=== PATIENT | male | born 1960 | race Caucasian/White ===

== ENCOUNTER → 2017-03-12 | Outpatient (REF) | payer BC ==
[2017-03-12 13:50] LABS: ALBUMIN 3.5 GM/DL (3.2-5.2); ALBUMIN/GLOBULIN RATIO 1.21 (1.00-1.93); ALKALINE PHOSPHATASE 99 U/L (45-117); ALT/SGPT 64 U/L (12-78); ANION GAP 7 MEQ/L (8-16); AST/SGOT 49 U/L (15-37); BLOOD UREA NITROGEN 22 MG/DL (7-18); CALCIUM LEVEL 8.7 MG/DL (8.5-10.1); CARBON DIOXIDE LEVEL 28 MEQ/L (21-32); CHLORIDE LEVEL 107 MEQ/L (98-107); CREATININE FOR GFR 0.91 MG/DL (0.70-1.30); GLOMERULAR FILTRATION RATE > 60.0 (>56); GLUCOSE, FASTING 117 MG/DL (70-105); POTASSIUM SERUM 4.2 MEQ/L (3.5-5.1); SODIUM LEVEL 142 MEQ/L (136-145); TOTAL PROTEIN 6.4 GM/DL (6.4-8.2)
== END ==
LOC: M LABDRAWP 11:57
PROVIDERS: ATTEND Internal Medicine
DX: R73.01 Impaired fasting glucose (principal); N42.0 Calculus of prostate
CPT/HCPCS: 36415; 80053; 83036; G0103

== ENCOUNTER → 2018-03-12 | Outpatient (REF) | payer BC ==
[2018-03-12 10:33] LABS: ANION GAP 7 MEQ/L (8-16); BLOOD UREA NITROGEN 15 MG/DL (7-18); CALCIUM LEVEL 8.4 MG/DL (8.5-10.1); CARBON DIOXIDE LEVEL 29 MEQ/L (21-32); CHLORIDE LEVEL 105 MEQ/L (98-107); CREATININE FOR GFR 0.95 MG/DL (0.70-1.30); GLOMERULAR FILTRATION RATE > 60.0 (>56); GLUCOSE, FASTING 117 MG/DL (70-100); POTASSIUM SERUM 4.3 MEQ/L (3.5-5.1); SODIUM LEVEL 141 MEQ/L (136-145)
[2018-03-12 10:34] LABS: ALBUMIN 3.7 GM/DL (3.2-5.2); ALBUMIN/GLOBULIN RATIO 1.12 (1.00-1.93); ALKALINE PHOSPHATASE 99 U/L (45-117); ALT/SGPT 50 U/L (12-78); AST/SGOT 33 U/L (7-37); BILIRUBIN,TOTAL 1.2 MG/DL (0.2-1.0); CHOLESTEROL LEVEL 151 MG/DL (<200); CHOLESTEROL RISK RATIO 2.849 (<5); HDL CHOLESTEROL 53 MG/DL (>40); LDL CHOLESTEROL 81.8 MG/DL (<100); NON-HDL-C 98 MG/DL; TRIGLYCERIDES LEVEL 81 MG/DL (<150)
[2018-03-12 10:41] LABS: ESTIMATED AVERAGE GLUCOSE 123 MG/DL (60-110); HEMOGLOBIN A1c 5.9 %
== END ==
LOC: M SFHCPLAZ 08:03
DX: R73.01 Impaired fasting glucose (principal)
CPT/HCPCS: 80053

== ENCOUNTER → 2019-03-16 | Outpatient (REF) | payer BC ==
[2019-03-16 11:10] LABS: HEMATOCRIT 47.4 % (42.0-52.0); HEMOGLOBIN 16.5 g/dl (13.5-17.5); MEAN CORPUSCULAR HEMOGLOBIN 32.9 pg (27.0-33.0); MEAN CORPUSCULAR HGB CONC 34.8 g/dl (32.0-36.5); MEAN CORPUSCULAR VOLUME 94.4 fl (80.0-96.0); PLATELET COUNT, AUTOMATED 187 10^3/uL (150-450); RED BLOOD COUNT 5.02 10^6/uL (4.30-6.10); WHITE BLOOD COUNT 4.5 10^3/uL (4.0-10.0)
[2019-03-16 11:46] LABS: ALBUMIN 3.8 GM/DL (3.2-5.2); ALT/SGPT 44 U/L (12-78); BILIRUBIN,TOTAL 1.6 MG/DL (0.2-1.0); BLOOD UREA NITROGEN 17 MG/DL (7-18); CALCIUM LEVEL 9.3 MG/DL (8.8-10.2); CARBON DIOXIDE LEVEL 30 MEQ/L (21-32); CHLORIDE LEVEL 103 MEQ/L (98-107); GLOMERULAR FILTRATION RATE > 60.0 (>49); GLUCOSE, FASTING 127 MG/DL (70-100); POTASSIUM SERUM 5.1 MEQ/L (3.5-5.1); SODIUM LEVEL 139 MEQ/L (136-145)
[2019-03-16 11:54] LABS: HEMOGLOBIN A1c 6.7 %
== END ==
LOC: M SFHCPLAZ 08:31
PROVIDERS: ATTEND Internal Medicine
DX: Z00.00 Encounter for general adult medical examination without abnormal findings (principal); R73.01 Impaired fasting glucose; N42.0 Calculus of prostate
CPT/HCPCS: 36415; 80053; 83036; 85027; G0103

== ENCOUNTER 2019-05-19 08:07 | Day surgery (SDC) | payer BC ==
[~2019-05-19] VITALS: Ht 182.9 cm; Wt 98.9 kg
[~2019-05-19 08:07] MED LIST: LIDOCAINE 2% INJ 100 MG/5 ML SDV (FOR ANES.) As Ordered ONE; NS 1,000 ML IV ONE
[2019-05-19] MEDS ORDERED: PROPOFOL 200 MG/20 ML VIAL As Ordered ONE ×2 (09:07→10:03)
--- NOTE | 2019-05-19 10:08 | ROOR ---
Patient Name: Hamilton Babb Procedure Date: 05/19/2019 9:28 AM Date of : 1960 Age: 59 Room: [facility] Gender: Male Note Status: Finalized Procedure: Colonoscopy Indications: Screening for colorectal malignant neoplasm, Last colonoscopy: September 2009 Providers: Onesimo Kay MD Referring MD: Rip Cotton MD Requesting Provider: Medicines: Monitored Anesthesia Care Complications: No immediate complications. Procedure: Pre-Anesthesia Assessment: - Prior to the procedure, a History and Physical was performed, and patient medications and allergies were reviewed. The patient is competent. The risks and benefits of the procedure and the sedation options and risks were discussed with the patient. All questions were answered and informed consent was obtained. Patient identification and proposed procedure were verified by the physician, the nurse and the anesthesiologist in the procedure room. Mental Status Examination: alert and oriented. Airway Examination: normal oropharyngeal airway and neck mobility. CV Examination: regular rate and rhythm. Prophylactic Antibiotics: The patient does not require prophylactic antibiotics. Prior Anticoagulants: The patient has taken no previous anticoagulant or antiplatelet agents. ASA Grade Assessment: I - A normal, healthy patient. After reviewing the risks and benefits, the patient was deemed in satisfactory condition to undergo the procedure. The anesthesia plan was to use monitored anesthesia care (MAC). Immediately prior to administration of medications, the patient was re-assessed for adequacy to receive sedatives. The heart rate, respiratory rate, oxygen saturations, blood pressure, adequacy of pulmonary ventilation, and response to care were monitored throughout the procedure. The physical status of the patient was re-assessed after the procedure. The Colonoscope was introduced through the anus and advanced to the cecum, identified by appendiceal orifice and ileocecal valve. The colonoscopy was performed without difficulty. The patient tolerated the procedure well. The quality of the bowel preparation was excellent. Findings: The perianal and digital rectal examinations were normal. A 4 mm polyp was found in the proximal ascending colon. The polyp was sessile. The polyp was removed with a cold snare. Resection and retrieval were complete. Estimated blood loss was minimal. A few medium-mouthed diverticula were found in the entire colon. Impression: - One 4 mm polyp in the proximal ascending colon, removed with a cold snare. Resected and retrieved. - Diverticulosis in the entire examined colon. Recommendation: - Discharge patient to home. - Resume previous diet. - Continue present medications. - Await pathology results. - If the pathology report reveals adenomatous tissue, then repeat the colonoscopy for surveillance in 3 - 5 years. Onesimo Kay MD Onesimo Kay MD 05/19/2019 10:08:25 AM Electronically signed by Onesimo Kay MD Number of Addenda: 0 Note Initiated On: 05/19/2019 9:28 AM Estimated Blood Loss: Estimated blood loss was minimal.
[2019-05-19 10:37] VITALS: BP 138/86
== END 2019-05-19 10:38 | disposition home or self-care (01) ==
LOC: M OPP 08:07
PROVIDERS: ATTEND Surgery
DX: Z12.11 Encounter for screening for malignant neoplasm of colon (principal); D12.2 Benign neoplasm of ascending colon; K57.30 Diverticulosis of large intestine without perforation or abscess without bleeding; Z87.891 Personal history of nicotine dependence

== ENCOUNTER → 2019-06-13 | Outpatient (REF) | payer BC | LOC: M LAB REF 08:23 | PROVIDERS: ATTEND Physician Assistant | DX: J06.9 Acute upper respiratory infection, unspecified (principal) ==

== ENCOUNTER → 2019-09-14 | Outpatient (REF) | payer BC ==
[2019-09-14 12:23] LABS: HEMOGLOBIN A1c 6.2 %
[2019-09-14 12:36] LABS: ALBUMIN 3.5 GM/DL (3.2-5.2); ALT/SGPT 48 U/L (12-78); BILIRUBIN,TOTAL 1.2 MG/DL (0.2-1.0); BLOOD UREA NITROGEN 14 MG/DL (7-18); CALCIUM LEVEL 8.7 MG/DL (8.8-10.2); CARBON DIOXIDE LEVEL 30 MEQ/L (21-32); CHLORIDE LEVEL 104 MEQ/L (98-107); CHOLESTEROL LEVEL 154 MG/DL (<200); CHOLESTEROL RISK RATIO 3.347 (<5); CREATININE FOR GFR 0.98 MG/DL (0.70-1.30); GLOMERULAR FILTRATION RATE > 60.0 (>49); GLUCOSE, FASTING 127 MG/DL (70-100); HDL CHOLESTEROL 46 MG/DL (>40); LDL CHOLESTEROL 90 MG/DL (<100); NON-HDL-C 108 MG/DL; POTASSIUM SERUM 4.3 MEQ/L (3.5-5.1); SODIUM LEVEL 140 MEQ/L (136-145); TOTAL PROTEIN 6.8 GM/DL (6.4-8.2); TRIGLYCERIDES LEVEL 88 MG/DL (<150)
[2019-09-14 14:03] LABS: MAU/CREAT RATIO 4.5 MCG/MG (0.0-30.0)
== END ==
LOC: M SFHCPLAZ 08:17
PROVIDERS: ATTEND Internal Medicine
DX: R73.01 Impaired fasting glucose (principal)

== ENCOUNTER → 2020-05-21 | Outpatient (REF) | payer BC ==
[2020-06-17 20:25] LABS: HEMATOCRIT 46.8 % (42.0-52.0); HEMOGLOBIN 15.8 g/dl (13.5-17.5); MEAN CORPUSCULAR HEMOGLOBIN 33.1 pg (27.0-33.0); MEAN CORPUSCULAR HGB CONC 33.8 g/dl (32.0-36.5); MEAN CORPUSCULAR VOLUME 97.9 fl (80.0-96.0); PLATELET COUNT, AUTOMATED 153 10^3/uL (150-450); RED BLOOD COUNT 4.78 10^6/uL (4.30-6.10); WHITE BLOOD COUNT 3.9 10^3/uL (4.0-10.0)
[2020-07-02 12:00] LABS: ALBUMIN 3.8 GM/DL (3.2-5.2); ALT/SGPT 57 U/L (12-78); BILIRUBIN,TOTAL 0.8 MG/DL (0.2-1.0); BLOOD UREA NITROGEN 12 MG/DL (7-18); CALCIUM LEVEL 8.9 MG/DL (8.8-10.2); CARBON DIOXIDE LEVEL 27 MEQ/L (21-32); CHLORIDE LEVEL 107 MEQ/L (98-107); CREATININE FOR GFR 0.96 MG/DL (0.70-1.30); GLOMERULAR FILTRATION RATE > 60.0 (>49); GLUCOSE, FASTING 156 MG/DL (70-100); HEMOGLOBIN A1c 6.5 %; POTASSIUM SERUM 4.3 MEQ/L (3.5-5.1); SODIUM LEVEL 139 MEQ/L (136-145); TOTAL PROTEIN 7.1 GM/DL (6.4-8.2)
== END ==
LOC: M SFHCPLAZ 12:42
PROVIDERS: ATTEND Internal Medicine
DX: Z00.00 Encounter for general adult medical examination without abnormal findings (principal); R73.01 Impaired fasting glucose; N42.0 Calculus of prostate
CPT/HCPCS: 36415; 80053; 83036; 85027; G0103

== ENCOUNTER → 2020-10-05 | Outpatient (CLI) | payer SELFPAY | LOC: M LABSMTC 14:02 | PROVIDERS: ATTEND Pediatrics | DX: Z20.828 Contact with and (suspected) exposure to other viral communicable diseases (principal) ==

== ENCOUNTER → 2020-11-27 | Outpatient (CLI) | payer SELFPAY | LOC: M LABSMTC 09:42 | PROVIDERS: ATTEND Pediatrics | DX: Z20.822 Contact with and (suspected) exposure to COVID-19 (principal) ==

== ENCOUNTER → 2020-12-10 | Outpatient (CLI) | payer SELFPAY | LOC: M LABSMTC 13:59 | PROVIDERS: ATTEND Pediatrics | DX: Z20.822 Contact with and (suspected) exposure to COVID-19 (principal) ==

== ENCOUNTER → 2021-04-02 | Outpatient (REF) | payer BC ==
[2021-04-02 11:49] LABS: BASO % 1.1 % (0.0-1.0); EOS # 0.1 10^3/uL (0.0-0.5); EOS % 1.9 % (0.0-3.0); HEMATOCRIT 47.3 % (42.0-52.0); HEMOGLOBIN 16.1 g/dl (13.5-17.5); LYMPH % 25.4 % (24.0-44.0); MEAN CORPUSCULAR HEMOGLOBIN 32.7 pg (27.0-33.0); MEAN CORPUSCULAR VOLUME 96.1 fl (80.0-96.0); MONO # 0.4 10^3/uL (0.0-0.8); MONO % 9.4 % (2.0-8.0); NEUTROPHILS # 2.3 10^3/uL (1.5-8.5); NEUTROPHILS % 61.9 % (36.0-66.0); PLATELET COUNT, AUTOMATED 148 10^3/uL (150-450); RED BLOOD COUNT 4.92 10^6/uL (4.30-6.10); WHITE BLOOD COUNT 3.7 10^3/uL (4.0-10.0)
[2021-04-02 12:34] LABS: ALBUMIN 3.5 GM/DL (3.2-5.2); ALT/SGPT 49 U/L (12-78); BILIRUBIN,TOTAL 1.3 MG/DL (0.2-1.0); BLOOD UREA NITROGEN 17 MG/DL (7-18); CALCIUM LEVEL 8.5 MG/DL (8.8-10.2); CARBON DIOXIDE LEVEL 28 MEQ/L (21-32); CHLORIDE LEVEL 104 MEQ/L (98-107); CHOLESTEROL LEVEL 149 MG/DL (<200); CHOLESTEROL RISK RATIO 3.311 (<5); CREATININE FOR GFR 0.88 MG/DL (0.70-1.30); GLOMERULAR FILTRATION RATE > 60.0 (>49); GLUCOSE, FASTING 255 MG/DL (70-100); HDL CHOLESTEROL 45 MG/DL (>40); LDL CHOLESTEROL 86 MG/DL (<100); NON-HDL-C 104 MG/DL; POTASSIUM SERUM 4.3 MEQ/L (3.5-5.1); SODIUM LEVEL 136 MEQ/L (136-145); TOTAL PROTEIN 6.7 GM/DL (6.4-8.2); TRIGLYCERIDES LEVEL 88 MG/DL (<150)
[2021-04-02 13:09] LABS: HEPATITIS C VIRUS ABY INDEX < 0.0 INDEX (<0.8)
[2021-04-02 15:50] LABS: HEMOGLOBIN A1c 10.1 %
[2021-04-03 11:44] LABS: CREATININE, URINE 61.4 MG/DL; MALB URINE SIEMENS < 5.0 MG/L; MAU/CREAT RATIO 8.1 MCG/MG (0.0-30.0)
== END ==
LOC: M SFHCPLAZ 08:27
PROVIDERS: ATTEND Internal Medicine
DX: Z00.00 Encounter for general adult medical examination without abnormal findings (principal); R73.01 Impaired fasting glucose; Z12.5 Encounter for screening for malignant neoplasm of prostate; Z11.59 Encounter for screening for other viral diseases

== ENCOUNTER → 2021-07-04 | Outpatient (CLI) | payer BC ==
[2021-07-04 11:21] LABS: ALBUMIN 3.5 GM/DL (3.2-5.2); ALT/SGPT 42 U/L (12-78); BILIRUBIN,TOTAL 0.8 MG/DL (0.2-1.0); BLOOD UREA NITROGEN 17 MG/DL (7-18); CALCIUM LEVEL 8.9 MG/DL (8.8-10.2); CARBON DIOXIDE LEVEL 27 MEQ/L (21-32); CHLORIDE LEVEL 104 MEQ/L (98-107); CREATININE FOR GFR 0.91 MG/DL (0.70-1.30); GLOMERULAR FILTRATION RATE > 60.0 (>49); GLUCOSE, FASTING 137 MG/DL (70-100); POTASSIUM SERUM 4.6 MEQ/L (3.5-5.1); SODIUM LEVEL 140 MEQ/L (136-145); TOTAL PROTEIN 6.7 GM/DL (6.4-8.2)
[2021-07-04 11:29] LABS: HEMOGLOBIN A1c 6.2 %
== END ==
LOC: M PLALAB 08:21
PROVIDERS: ATTEND Internal Medicine
DX: E11.9 Type 2 diabetes mellitus without complications (principal)

== ENCOUNTER → 2022-01-13 | Outpatient (CLI) | payer BC ==
[2022-01-13 13:42] LABS: BASO % 0.8 % (0.0-1.0); EOS # 0.1 10^3/uL (0.0-0.5); EOS % 1.6 % (0.0-3.0); HEMATOCRIT 47.1 % (42.0-52.0); HEMOGLOBIN 16.6 g/dl (13.5-17.5); LYMPH % 25.3 % (24.0-44.0); MEAN CORPUSCULAR HEMOGLOBIN 33.1 pg (27.0-33.0); MEAN CORPUSCULAR HGB CONC 35.2 g/dl (32.0-36.5); MONO # 0.3 10^3/uL (0.0-0.8); MONO % 8.3 % (2.0-8.0); NEUTROPHILS # 2.5 10^3/uL (1.5-8.5); NEUTROPHILS % 63.7 % (36.0-66.0); PLATELET COUNT, AUTOMATED 151 10^3/uL (150-450); RED BLOOD COUNT 5.01 10^6/uL (4.30-6.10); WHITE BLOOD COUNT 3.9 10^3/uL (4.0-10.0)
[2022-01-13 14:13] LABS: ALBUMIN 3.8 GM/DL (3.2-5.2); ALT/SGPT 49 U/L (12-78); BLOOD UREA NITROGEN 16 MG/DL (7-18); CALCIUM LEVEL 9.3 MG/DL (8.8-10.2); CARBON DIOXIDE LEVEL 31 MEQ/L (21-32); CHLORIDE LEVEL 107 MEQ/L (98-107); CHOLESTEROL LEVEL 144 MG/DL (<200); CHOLESTEROL RISK RATIO 2.769 (<5); CREATININE FOR GFR 0.97 MG/DL (0.70-1.30); GLOMERULAR FILTRATION RATE > 60.0 (>49); GLUCOSE, FASTING 137 MG/DL (70-100); HDL CHOLESTEROL 52 MG/DL (>40); LDL CHOLESTEROL 75 MG/DL (<100); NON-HDL-C 92 MG/DL; POTASSIUM SERUM 4.9 MEQ/L (3.5-5.1); SODIUM LEVEL 140 MEQ/L (136-145); TOTAL PROTEIN 6.9 GM/DL (6.4-8.2); TRIGLYCERIDES LEVEL 86 MG/DL (<150)
[2022-01-13 15:48] LABS: MALB URINE SIEMENS < 5.0 MG/L; MAU/CREAT RATIO 5.4 MCG/MG (0.0-30.0)
[2022-01-15 10:18] LABS: HEMOGLOBIN A1c 6.7 %
== END ==
LOC: M PLALAB 09:17
PROVIDERS: ATTEND Internal Medicine
DX: E11.9 Type 2 diabetes mellitus without complications (principal); Z86.010 Personal history of colon polyps

== ENCOUNTER → 2022-06-05 | Outpatient (CLI) | payer BC ==
[~2022-06-05] MED LIST changes: -LIDOCAINE 2% INJ 100 MG/5 ML SDV (FOR ANES.) As Ordered ONE; +METF750T36; -NS 1,000 ML IV ONE
== END ==
LOC: M LABSMTC 09:18
PROVIDERS: ATTEND Anesthesiology
DX: Z01.812 Encounter for preprocedural laboratory examination (principal); Z11.52 Encounter for screening for COVID-19

== ENCOUNTER 2022-06-10 06:41 | Day surgery (SDC) | payer BC ==
[~2022-06-10] VITALS: Ht 182.9 cm; Wt 95.3 kg
[~2022-06-10 06:41] MED LIST changes: +NS 1,000 ML IV ONE
[2022-06-10] MEDS ORDERED: propofoL 200 MG/20 ML VIAL As Ordered ONE ×2 (07:40→08:02)
[2022-06-10] MEDS ORDERED: LIDOCAINE 2% 100MG/5ML SDV (FOR ANES.) As Ordered ONE (07:40)
[2022-06-10 08:25] VITALS: BP 120/58
== END 2022-06-10 08:50 | disposition home or self-care (01) ==
LOC: M OPP 06:41
PROVIDERS: ATTEND Surgery
DX: Z12.11 Encounter for screening for malignant neoplasm of colon (principal); Z86.010 Personal history of colon polyps; D12.3 Benign neoplasm of transverse colon; K57.30 Diverticulosis of large intestine without perforation or abscess without bleeding; K64.8 Other hemorrhoids; E11.9 Type 2 diabetes mellitus without complications; Z79.84 Long term (current) use of oral hypoglycemic drugs

== ENCOUNTER → 2022-07-10 | Outpatient (CLI) | payer BC ==
[~2022-07-10] MED LIST changes: -NS 1,000 ML IV ONE
[2022-07-10 11:11] LABS: HEMOGLOBIN 15.7 g/dl (13.5-17.5); MEAN CORPUSCULAR HEMOGLOBIN 33.3 pg (27.0-33.0); MEAN CORPUSCULAR HGB CONC 34.9 g/dl (32.0-36.5); MEAN CORPUSCULAR VOLUME 95.3 fl (80.0-96.0); PLATELET COUNT, AUTOMATED 147 10^3/uL (150-450); RED BLOOD COUNT 4.72 10^6/uL (4.30-6.10); WHITE BLOOD COUNT 3.9 10^3/uL (4.0-10.0)
[2022-07-10 11:36] LABS: HEMOGLOBIN A1c 6.9 %
[2022-07-10 11:57] LABS: ALBUMIN 3.6 GM/DL (3.2-5.2); ALT/SGPT 40 U/L (12-78); BILIRUBIN,TOTAL 1.1 MG/DL (0.2-1.0); BLOOD UREA NITROGEN 15 MG/DL (7-18); CALCIUM LEVEL 8.6 MG/DL (8.8-10.2); CARBON DIOXIDE LEVEL 27 MEQ/L (21-32); CHLORIDE LEVEL 106 MEQ/L (98-107); CHOLESTEROL LEVEL 157 MG/DL (<200); CHOLESTEROL RISK RATIO 3.019 (<5); CREATININE FOR GFR 0.83 MG/DL (0.70-1.30); FREE T4 1.01 NG/DL (0.76-1.46); GLOMERULAR FILTRATION RATE > 60.0 (>49); GLUCOSE, FASTING 146 MG/DL (70-100); HDL CHOLESTEROL 52 MG/DL (>40); LDL CHOLESTEROL 90 MG/DL (<100); NON-HDL-C 105 MG/DL; POTASSIUM SERUM 4.2 MEQ/L (3.5-5.1); SODIUM LEVEL 139 MEQ/L (136-145); TOTAL PROTEIN 6.6 GM/DL (6.4-8.2); TRIGLYCERIDES LEVEL 76 MG/DL (<150)
[2022-07-10 11:59] LABS: MALB URINE SIEMENS 5.3 MG/L; MAU/CREAT RATIO 6.1 MCG/MG (0.0-30.0)
[2022-07-10 12:37] LABS: TOTAL 25(OH) VITAMIN D 38.1 NG/ML (30.0-100.0); VITAMIN B12 LEVEL 402 PG/ML (247-911)
== END ==
LOC: M PLALAB 08:26
PROVIDERS: ATTEND Internal Medicine Hematology
DX: E11.9 Type 2 diabetes mellitus without complications (principal)

== ENCOUNTER → 2022-07-16 | Outpatient (CLI) | payer BC | LOC: M PLALAB 07:47 | PROVIDERS: ATTEND Internal Medicine Hematology | DX: Z12.5 Encounter for screening for malignant neoplasm of prostate (principal) | CPT/HCPCS: 36415; G0103 ==

== ENCOUNTER → 2023-07-02 | Outpatient (CLI) | payer BC, MEDICARE ==
[2023-07-02 14:25] LABS: HEMATOCRIT 44.1 % (42.0-52.0); HEMOGLOBIN 15.1 g/dl (13.5-17.5); MEAN CORPUSCULAR HEMOGLOBIN 32.9 pg (27.0-33.0); MEAN CORPUSCULAR HGB CONC 34.2 g/dl (32.0-36.5); MEAN CORPUSCULAR VOLUME 96.1 fl (80.0-96.0); PLATELET COUNT, AUTOMATED 162 10^3/uL (150-450); RED BLOOD COUNT 4.59 10^6/uL (4.30-6.10); WHITE BLOOD COUNT 3.8 10^3/uL (4.0-10.0)
[2023-07-02 14:29] LABS: C REACTIVE PROTEIN QUANTITATIV < 0.40 MG/DL (<1.0)
[2023-07-02 14:30] LABS: ALBUMIN 3.6 G/DL (3.2-5.2); ALKALINE PHOSPHATASE 116 U/L (46-116); ALT/SGPT 39 U/L (7.0-40); AST/SGOT 19 U/L (<34); BILIRUBIN,TOTAL 1.2 MG/DL (0.3-1.2); BLOOD UREA NITROGEN 15 MG/DL (9-23); CALCIUM LEVEL 8.7 MG/DL (8.3-10.6); CARBON DIOXIDE LEVEL 29 MMOL/L (20-31); CHLORIDE LEVEL 104 MMOL/L (98-107); CHOLESTEROL LEVEL 148 MG/DL (<200); CREATININE FOR GFR 0.83 MG/DL (0.70-1.30); GLOMERULAR FILTRATION RATE > 60.0 (>49); GLUCOSE, FASTING 178 MG/DL (74-106); HDL CHOLESTEROL 47.6 MG/DL (>40); LDL CHOLESTEROL 82.8 MG/DL (<100); NON-HDL-C 100.4 MG/DL; POTASSIUM SERUM 4.2 MMOL/L (3.5-5.1); SODIUM LEVEL 140 MMOL/L (136-145); TOTAL PROTEIN 6.6 G/DL (5.7-8.2); TRIGLYCERIDES LEVEL 88 MG/DL (<150)
[2023-07-02 15:18] LABS: THYROID STIMULATING HORMONE 1.698 uIU/ML (0.55-4.78); VITAMIN B12 LEVEL 342 PG/ML (211-911)
[2023-07-02 15:21] LABS: FREE T4 1.02 NG/DL (0.89-1.76)
[2023-07-02 15:22] LABS: HEMOGLOBIN A1c 8.2 % (4.0-6.0)
[2023-07-02 15:26] LABS: CREATININE, URINE 78.2 MG/DL; MAU/CREAT RATIO 5.1 MCG/MG (0.0-30.0)
== END ==
LOC: M PLALAB 07:47
PROVIDERS: ATTEND Internal Medicine Hematology
DX: R73.01 Impaired fasting glucose (principal); Z79.899 Other long term (current) drug therapy

== ENCOUNTER → 2023-10-07 | Outpatient (CLI) | payer OTHER, BC ==
[2023-10-07 12:46] LABS: HEMOGLOBIN A1c 6.2 % (4.0-6.0)
[2023-10-08 19:07] LABS: TESTOSTERONE FREE (DIRECT) 8.1 pg/mL (6.6-18.1)
== END ==
LOC: M PLALAB 07:47
PROVIDERS: ATTEND Internal Medicine Hematology
DX: Z12.5 Encounter for screening for malignant neoplasm of prostate (principal); E11.9 Type 2 diabetes mellitus without complications; N52.9 Male erectile dysfunction, unspecified
CPT/HCPCS: 36415; 83036; 84402; 84403; G0103

== ENCOUNTER → 2024-04-19 | Outpatient (CLI) | payer MEDICARE, OTHER ==
[2024-04-19 11:00] LABS: HEMATOCRIT 44.2 % (42.0-52.0); HEMOGLOBIN 15.6 g/dl (13.5-17.5); MEAN CORPUSCULAR HEMOGLOBIN 33.9 pg (27.0-33.0); MEAN CORPUSCULAR HGB CONC 35.3 g/dl (32.0-36.5); MEAN CORPUSCULAR VOLUME 96.1 fl (80.0-96.0); PLATELET COUNT, AUTOMATED 149 10^3/uL (150-450); WHITE BLOOD COUNT 3.8 10^3/uL (4.0-10.0)
[2024-04-19 11:24] LABS: HEMOGLOBIN A1c 6.2 % (4.0-6.0)
[2024-04-19 11:31] LABS: CREATININE, URINE 96.8 MG/DL; MALB URINE SIEMENS < 3.0 MG/L
[2024-04-19 11:32] LABS: C REACTIVE PROTEIN QUANTITATIV < 0.40 MG/DL (<1.0)
[2024-04-19 11:33] LABS: ALBUMIN 3.6 G/DL (3.2-5.2); ALKALINE PHOSPHATASE 103 U/L (46-116); ALT/SGPT 40 U/L (7.0-40); AST/SGOT 35 U/L (<34); BILIRUBIN,TOTAL 1.5 MG/DL (0.3-1.2); BLOOD UREA NITROGEN 17 MG/DL (9-23); CARBON DIOXIDE LEVEL 28 MMOL/L (20-31); CHLORIDE LEVEL 107 MMOL/L (98-107); CHOLESTEROL LEVEL 124 MG/DL (<200); CHOLESTEROL RISK RATIO 3.12 (<5); CREATININE FOR GFR 0.89 MG/DL (0.70-1.30); GLOMERULAR FILTRATION RATE > 60.0 (>49); GLUCOSE, FASTING 133 MG/DL (74-106); HDL CHOLESTEROL 39.7 MG/DL (>40); LDL CHOLESTEROL 71.3 MG/DL (<100); NON-HDL-C 84.3 MG/DL; POTASSIUM SERUM 4.8 MMOL/L (3.5-5.1); SODIUM LEVEL 140 MMOL/L (136-145); THYROID STIMULATING HORMONE 1.459 uIU/ML (0.55-4.78); TOTAL PROTEIN 6.6 G/DL (5.7-8.2); TRIGLYCERIDES LEVEL 65 MG/DL (<150)
[2024-04-19 11:35] LABS: TOTAL 25(OH) VITAMIN D 36.9 NG/ML (20.0-100.0); VITAMIN B12 LEVEL 254 PG/ML (211-911)
== END ==
LOC: M PLALAB 08:07
PROVIDERS: ATTEND Internal Medicine Hematology
DX: E11.9 Type 2 diabetes mellitus without complications (principal); Z79.899 Other long term (current) drug therapy

== ENCOUNTER → 2024-09-20 | Outpatient (REF) | payer OTHER, MEDICARE ==
[~2024-09-20] MED LIST changes: +CEPH500C; +GLIM2TAB29; +LEVO1TAB40 PO; +PHEN-501
== END ==
LOC: M LAB REF 09:51
PROVIDERS: ATTEND Nurse Practitioner Family
DX: R30.0 Dysuria (principal)

== ENCOUNTER 2024-09-23 07:41 | Emergency (ER) | payer MEDICARE, OTHER ==
[~2024-09-23] VITALS: Ht 182.9 cm; Wt 98.3 kg
[~2024-09-23 07:41] MED LIST changes: -CEPH500C; -GLIM2TAB29; -LEVO1TAB40 PO; -PHEN-501
[2024-09-23] MEDS ORDERED: PHEN-501 (07:54)
[2024-09-23] MEDS ORDERED: GLIM2TAB29 (07:54)
[2024-09-23] MEDS ORDERED: CEPH500C (07:54)
[2024-09-23 08:28] LABS: APPEARANCE, URINE CLEAR (CLEAR); BACTERIA, URINE AUTO NEGATIVE (NEGATIVE); BILIRUBIN, URINE AUTO NEGATIVE (NEGATIVE); BLOOD, URINE BLOOD NEGATIVE (NEGATIVE); COLOR, URINE YELLOW (YELLOW); GLUCOSE, URINE (UA) AUTO 3+ mg/dL (NEGATIVE); KETONE, URINE AUTO NEGATIVE (NEGATIVE); LEUKOCYTE ESTERASE, URINE AUTO NEGATIVE (NEGATIVE); NITRITE, URINE AUTO POSITIVE (NEGATIVE); PROTEIN, URINE AUTO NEGATIVE (NEGATIVE); RBC, URINE AUTO 1 /HPF (0-3); SPECIFIC GRAVITY URINE AUTO 1.015 (1.002-1.035); SQUAMOUS EPITHELIAL CELL UR AU 0 /HPF (0-6); WBC, URINE AUTO 13 /HPF (0-3)
[2024-09-23 08:55] LABS: BASO # 0.1 10^3/uL (0.0-0.2); EOS # 0.1 10^3/uL (0.0-0.5); EOS % 1.5 % (0.0-3.0); HEMOGLOBIN 15.5 g/dl (13.5-17.5); LYMPH % 19.8 % (24.0-44.0); MEAN CORPUSCULAR HEMOGLOBIN 33.7 pg (27.0-33.0); MEAN CORPUSCULAR HGB CONC 35.2 g/dl (32.0-36.5); MEAN CORPUSCULAR VOLUME 95.7 fl (80.0-96.0); MONO # 0.4 10^3/uL (0.0-0.8); MONO % 8.3 % (2.0-8.0); NEUTROPHILS # 3.6 10^3/uL (1.5-8.5); PLATELET COUNT, AUTOMATED 185 10^3/uL (150-450); WHITE BLOOD COUNT 5.2 10^3/uL (4.0-10.0)
[2024-09-23 09:18] LABS: BLOOD UREA NITROGEN 12 MG/DL (9-23); CALCIUM LEVEL 9.7 MG/DL (8.3-10.6); CARBON DIOXIDE LEVEL 26 MMOL/L (20-31); CHLORIDE LEVEL 103 MMOL/L (98-107); CREATININE FOR GFR 0.75 MG/DL (0.70-1.30); GLOMERULAR FILTRATION RATE > 60.0 (>49); GLUCOSE, FASTING 303 MG/DL (74-106); POTASSIUM SERUM 4.3 MMOL/L (3.5-5.1); SODIUM LEVEL 136 MMOL/L (136-145)
[2024-09-23] MEDS: LevoFLOXacin 750 MG TABLET PO ONE (09:48)
[2024-09-23] MEDS ORDERED: LEVO1TAB40 PO (09:49)
[2024-09-23 09:58] VITALS: BP 145/89; TEMP 96.3; O2SAT 97
== END 2024-09-23 10:03 | disposition home or self-care (01) ==
LOC: M ED 07:41
DX: N39.0 Urinary tract infection, site not specified (principal); E11.9 Type 2 diabetes mellitus without complications; Z79.84 Long term (current) use of oral hypoglycemic drugs

== ENCOUNTER → 2024-10-20 | Outpatient (CLI) | payer MEDICARE ==
[~2024-10-20] MED LIST changes: +CEPH500C; +GLIM2TAB29; +LEVO1TAB40 PO; +PHEN-501
[2024-10-20 10:32] LABS: EOS # 0.1 10^3/uL (0.0-0.5); HEMATOCRIT 45.5 % (42.0-52.0); HEMOGLOBIN 15.6 g/dl (13.5-17.5); LYMPH # 1.2 10^3/uL (1.5-5.0); MEAN CORPUSCULAR HEMOGLOBIN 33.6 pg (27.0-33.0); MEAN CORPUSCULAR HGB CONC 34.3 g/dl (32.0-36.5); MEAN CORPUSCULAR VOLUME 98.1 fl (80.0-96.0); MONO # 0.4 10^3/uL (0.0-0.8); MONO % 8.8 % (2.0-8.0); NEUTROPHILS # 2.3 10^3/uL (1.5-8.5); NEUTROPHILS % 58.9 % (36.0-66.0); PLATELET COUNT, AUTOMATED 129 10^3/uL (150-450); RED BLOOD COUNT 4.64 10^6/uL (4.30-6.10)
[2024-10-20 10:34] LABS: C REACTIVE PROTEIN QUANTITATIV < 0.50 MG/DL (<1.0)
[2024-10-20 10:35] LABS: ALBUMIN 3.7 G/DL (3.2-5.2); ALKALINE PHOSPHATASE 108 U/L (40-129); ALT/SGPT 56 U/L (7.0-40); AST/SGOT 36 U/L (<34); BILIRUBIN,TOTAL 0.9 MG/DL (0.3-1.2); BLOOD UREA NITROGEN 18 MG/DL (9-23); CALCIUM LEVEL 9.5 MG/DL (8.3-10.6); CARBON DIOXIDE LEVEL 29 MMOL/L (20-31); CHLORIDE LEVEL 104 MMOL/L (98-107); CHOLESTEROL LEVEL 154 MG/DL (<200); CHOLESTEROL RISK RATIO 3.01 (<5); CREATININE FOR GFR 0.86 MG/DL (0.70-1.30); FREE T4 1.04 NG/DL (0.89-1.76); GLOMERULAR FILTRATION RATE > 60.0 (>49); GLUCOSE, FASTING 159 MG/DL (74-106); LDL CHOLESTEROL 84.6 MG/DL (<100); SODIUM LEVEL 140 MMOL/L (136-145); TOTAL PROTEIN 7.1 G/DL (5.7-8.2); TRIGLYCERIDES LEVEL 92 MG/DL (<150)
[2024-10-20 10:36] LABS: TOTAL 25(OH) VITAMIN D 45.4 NG/ML (20.0-100.0)
[2024-10-20 10:47] LABS: HEMOGLOBIN A1c 6.8 % (4.0-6.0)
[2024-10-20 10:58] LABS: CREATININE, URINE 82.5 MG/DL; MALB URINE SIEMENS < 3.0 MG/L
[2024-10-20 11:16] LABS: VITAMIN B12 LEVEL 443 PG/ML (211-911)
== END ==
LOC: M PLALAB 07:52
PROVIDERS: ATTEND Student in an Organized Health Care Education/Training Program
DX: Z12.5 Encounter for screening for malignant neoplasm of prostate (principal); E78.00 Pure hypercholesterolemia, unspecified
CPT/HCPCS: 36415; 80053; 80061; 82043; 82306; 82607; 83036; 84439; 84443; 85025; 86140; G0103

== ENCOUNTER → 2024-12-12 | Outpatient (CLI) | payer MEDICARE | LOC: M RAD 07:12 | PROVIDERS: ATTEND Family Medicine | DX: Z13.6 Encounter for screening for cardiovascular disorders (principal) ==

== ENCOUNTER → 2025-04-26 | Outpatient (CLI) | payer MEDICARE ==
[2025-04-26 11:20] LABS: ALT/SGPT 42.0 U/L (7.0-40); AST/SGOT 31.0 U/L (<34); CALCIUM LEVEL 9.3 MG/DL (8.3-10.6); CARBON DIOXIDE LEVEL 29.0 MMOL/L (20-31); CHLORIDE LEVEL 104.0 MMOL/L (98-107); CREATININE FOR GFR 0.98 MG/DL (0.70-1.30); GLOMERULAR FILTRATION RATE 85.0 (>49); POTASSIUM SERUM 4.9 MMOL/L (3.5-5.1); SODIUM LEVEL 142.0 MMOL/L (136-145)
[2025-04-26 12:51] LABS: ESTIMATED AVERAGE GLUCOSE 154.0 MG/DL (60-110)
== END ==
LOC: M PLALAB 07:21
PROVIDERS: ATTEND Family Medicine
DX: E11.9 Type 2 diabetes mellitus without complications (principal)

== ENCOUNTER → 2025-09-27 | Outpatient (CLI) | payer MEDICARE | LOC: M WUC 11:09 | DX: M25.531 Pain in right wrist (principal); M79.631 Pain in right forearm ==